=== PATIENT | male | born 1945 | race Hispanic/Latino ===

== ENCOUNTER 2021-02-25 10:46 | Emergency (ER) | payer OTHER ==
--- OUTSIDE RECORDS SUMMARY | 2021-02-25 10:48 | XMS REPORT | Continuity of Care Document ---
:1945 Demographics Address [address] [place] [address] Email Address PT DECLINE Preferred Language Tuvaluan Marital Status Unknown Nondenominational Affiliation Unknown Race Unknown Additional Race(s) Unavailable Ethnic Group Unknown Author Organization [facility] t Address [address] Gill [address] [place] [id number] Care Team Providers Name Role Phone Ajibade_O_AH Attending Clinician Unavailable STELLA Attending Clinician Unavailable Ige-Odunuga_J_AH Attending Clinician Unavailable Ajibade_O_AH Admitting Clinician Unavailable Ige-Odunuga_J_AH Admitting Clinician Unavailable Payers Payer Name Policy Type Policy Number Effective Date Expiration Date S ource [facility] [place] - [id number] [facility] 00:00:00 (MEDICARE REPLACEMENT/ADVANT AGE - HMO) Problems This patient has no known problems. Allergies, Adverse Reactions, Alerts This patient has no known allergies or adverse reactions. Medications This patient has no known medications. Procedures This patient has no known procedures. Encounters Start End Encounter Admission Attending Care Care Encounter Source Date/Time Date/Time Type Type Clinicians Facility Department ID 2019-11-13 2019-11-13 Outpatient Ajibade_O_A VFP VFP [phone] [facility] 04:35:00 04:35:00 H [id number] Family Practic e 2019-11-13 2019-11-13 Outpatient Ajibade_O_A VFP VFP [phone] [facility] 04:35:00 04:35:00 H [id number] Family Practic e 2019-08-05 2019-08-06 Outpatient STELLA [facility] [id number] [address] 00:00:00 00:00:00 MARISSA [address] 2019-07-08 2019-07-08 Outpatient STELLA [facility] [id number] [address] 00:00:00 00:00:00 MARISSA [address] 2019-05-07 2019-05-07 Outpatient Ige-Odunuga VFP VFP [phone] [facility] 07:18:00 07:18:00 _J_AH [id number] Family Practic e 2019-05-07 2019-05-07 Outpatient [facility] VFP [phone] [facility] 07:18:00 07:18:00 _J_AH [id number] Family Practic e Results This patient has no known results.
--- NOTE | 2021-02-25 15:32 | RAD REPORT ---
EXAM DESCRIPTION: CT - CTHCSPWOC - 02/25/2021 3:24 pm CLINICAL HISTORY: Trauma, head and neck injury. Syncope;Pain COMPARISON: No comparisons TECHNIQUE: Axial 5 mm thick images of the head were obtained. Axial 2 mm thick images of the cervical spine were obtained with sagittal and coronal reconstruction images generated and reviewed. All CT scans are performed using dose optimization technique as appropriate and may include automated exposure control or mA/KV adjustment according to patient size. FINDINGS: CT HEAD WITHOUT CONTRAST: No acute hemorrhage, hydrocephalus or extra-axial collection is identified.No areas of brain edema or midline shift. Chronic small vessel ischemic changes. The paranasal sinuses and mastoids are clear.The calvarium is intact. CT CERVICAL SPINE WITHOUT CONTRAST: No fracture or subluxation.No prevertebral soft tissues swelling is identified. Bilateral carotid art kvng stents. Near bridging osteophytes are present cervical spine. Apical scarring in the lungs. IMPRESSION: No acute intracranial or cervical spine findings. MRI is more sensitive for acute infarct.
--- NOTE | 2021-02-25 17:21 | RAD REPORT ---
EXAM DESCRIPTION: - CP - 02/25/2021 4:55 pm CLINICAL HISTORY: SYNCOPE COMPARISON: Head C Spine Mpr Wo Con dated 02/25/2021; Carotid Artery Bilateral dated 04/19/2018 TECHNIQUE: Real-time sonographic evaluation of both carotid systems was performed. Doppler interroga tion was performed with waveform tracing bilaterally. FINDINGS: Normal high resistance waveforms are noted in both external carotid arteries. The common c arotid arteries and internal carotid arteries show normal low resistance waveforms. Patent bilateral carotid artery stents which extend from the mid common carotid artery into the proximal ICAs. Peak systolic and end diastolic velocity values and the ICA/CCA ratios are in the non-hemodynamically significant range. Retrograde flow is present in the right vertebral artery. Normal antegrade flow is present in the lef t vertebral artery. IMPRESSION: Patent bilateral carotid artery stents. No flow limiting stenosis identified. Reversal flow in the right vertebral artery. This could indicate a flow limiting process in the right subclavian artery. The left vertebral artery demonstrates normal antegrade flow.
--- NOTE | 2021-02-25 19:38 | RAD REPORT ---
EXAM DESCRIPTION: MRI - Brain Wo Cont - 02/25/2021 7:09 pm CLINICAL HISTORY: Dizziness;Syncope COMPARISON: Head C Spine Mpr Wo Con dated 02/25/2021 TECHNIQUE: Sagittal T1-weighted images were obtained along with PD/heavily T2-weighted and T2-FLAIR images. Axial DWI and ADC mapping sequences were also obtained along with coronal heavily T2-weighted images were obtained. FINDINGS: No intracranial hemorrhage, mass or acute infarction. There is no edema or shift of midlin e structures. No extra-axial fluid collections. Signal voids are seen as a normal finding in the meet r intracranial vessels. Mild to moderate chronic small vessel ischemic changes. Slightly age advanced cerebral atrophy. Remote small bilateral cerebellar infarcts. Remote basal ganglia lacunar infarcts. Remote small granados radiata infarcts. Mastoid air cells and paranasal sinuses are clear. IMPRESSION: No acute intracranial abnormality. Specifically, no evidence of acute infarct. Sequela o f small remote infarcts as noted above. Mild to moderate chronic small vessel ischemic changes.
--- NOTE | 2021-02-25 19:59 | EDPHYS ---
Physician Documentation [facility] Name: Chapo Haskins Age: 75 yrs Sex: Male : 1945 Arrival Date: 02/25/2021 Time: 10:56 Bed 11 Private MD: ED Physician Denver Salmon HPI: 02/25 17:16 This 75 yrs old Male presents to ER via Ambulatory with complaints of Fall kdr Injury. 17:16 Details of fall: The patient fell from an upright position, while standing. Onset: The kdr symptoms/episode began/occurred suddenly, just prior to arrival. Associated injuries: The patient sustained injury to the head. Severity of symptoms: At their worst the symptoms were mild, in the emergency department the symptoms are unchanged. The patient has not experienced similar symptoms in the past, but family has similar symptoms. The patient has not recently seen a physician. Patient was looking at her son who is standing in a hugo brain picker lift platform above him. He noted several times to have some discomfort in his neck as he looked up. He then looked down abruptly and had a syncopal episode. He now complains of contusions on his thorax and arms. He also may have had a minor head contusion. Historical: - Allergies: 11:38 No Known Allergies; ss - PMHx: 11:38 Hypertensive disorder; Hypercholesterolemia; ss - PSHx: 11:38 carotid stents; ss - Immunization history:: Client reports having NOT received the Covid vaccine. - Social history:: Smoking status: Patient reports the use of cigarette tobacco products, denies chronic smoking, but will smoke occasionally. ROS: 17:19 Constitutional: Negative for fever, chills, and weight loss, Eyes: Negative for injury, kdr pain, redness, and discharge, Neck: Negative for injury, pain, and swelling, Cardiovascular: Negative for chest pain, palpitations, and edema, Respiratory: Negative for shortness of breath, cough, wheezing, and pleuritic chest pain, Abdomen/GI: Negative for abdominal pain, nausea, vomiting, diarrhea, and constipation, Back: Negative for injury and pain, : Negative for injury, bleeding, discharge, and swelling, MS/Extremity: Negative for injury and deformity, Skin: Negative for injury, rash, and discoloration, Neuro: Negative for headache, weakness, numbness, tingling, and seizure activity. Psych: Negative for depression, anxiety, suicide ideation, homicidal ideation, and hallucinations, Allergy/Immunology: Negative for hives, rash, and allergies, Endocrine: Negative for neck swelling, polydipsia, polyuria, polyphagia, and marked weight changes, Hematologic/Lymphatic: Negative for swollen nodes, abnormal bleeding, and unusual bruising. Exam: 17:19 Constitutional: This is a well developed, well nourished patient who is awake, alert, kdr and in no acute distress. Head/Face: Normocephalic, atraumatic. Eyes: Pupils equal round and reactive to light, extra-ocular motions intact. Lids and lashes normal. Conjunctiva and sclera are non-icteric and not injected. Cornea within normal limits. Periorbital areas with no swelling, redness, or edema. Neck: Trachea midline, no thyromegaly or masses palpated, and no cervical lymphadenopathy. Supple, full range of motion without nuchal rigidity, or vertebral point tenderness. No Meningismus. Chest/axilla: Normal chest wall appearance and motion. Nontender with no deformity. No lesions are appreciated. Cardiovascular: Regular rate and rhythm with a normal S1 and S2. No gallops, murmurs, or rubs. Normal PMI, no JVD. No pulse deficits. Respiratory: Lungs have equal breath sounds bilaterally, clear to auscultation and percussion. No rales, rhonchi or wheezes noted. No increased work of breathing, no retractions or nasal flaring. Abdomen/GI: Soft, with normal bowel sounds. No distension or tympany. No guarding or rebound. No evidence of tenderness throughout. Patient has minor contusion Back: No spinal tenderness. No costovertebral tenderness. Full range of motion. Skin: Warm, dry with normal turgor. Normal color with no rashes, no lesions, and no evidence of cellulitis. MS/ Extremity: Pulses equal, no cyanosis. Neurovascular intact. Full, normal range of motion. Neuro: Awake and alert, GCS 15, oriented to person, place, time, and situation. Cranial nerves II-XII grossly intact. Motor strength 5/5 in all extremities. Sensory grossly intact. Cerebellar exam normal. Normal gait. Psych: Awake, alert, with orientation to person, place and time. Behavior, mood, and affect are within normal limits. Vital Signs: 11:35 BP 134 / 65; Pulse 76; Resp 15; Temp 97.3(TE); Pulse Ox 97% on R/A; Weight 81.65 kg; ss Height 5 ft. 10 in. (177.80 cm); Pain 0/10; 20:25 BP 131 / 70; Pulse 72; Resp 18; Pulse Ox 98% on R/A; ld1 11:35 Body Mass Index 25.83 (81.65 kg, 177.80 cm) ss MDM: 17:19 Data reviewed: vital signs, nurses notes, lab test result(s), radiologic studies. kdr Counseling: I had a detailed discussion with the patient and/or guardian regarding: the historical points, exam findings, and any diagnostic results supporting the discharge/admit diagnosis, lab results, radiology results. 19:42 Transition of care: After a detail discussion of the patient's case, care is kdr transferred to Jose Guallpa MD. 19:59 Patient medically screened. kdr 20:00 ED course: The patient was stable in the ED and without further concerns. Since the kdr patient had a syncopal episode related to head position and movement the workup centered around head and neck issues. The patient has had syncopal episodes in the past that may have also been related to head movement and position. He has had carotid stents secondary to his evaluation and management of these episodes. He has not had any s/s suggestive of a cardiac etiology. 02/25 14:38 Order name: CT Head C Spine; Complete Time: 15:42 kdr 02/25 15:43 Order name: Carotid Artery Bilateral US; Complete Time: 19:45 kdr 02/25 18:59 Order name: Brain Wo Cont; Complete Time: 19:45 EDMS Administered Medications: No medications were administered Disposition Summary: 02/25/21 19:59 Discharge Ordered Location: Home kdr Problem: new kdr Symptoms: are resolved kdr Condition: Stable kdr Diagnosis - Syncope Near kdr Followup: kdr - With: Private Physician - When: 2 - 3 days - Reason: If symptoms return, Further diagnostic work-up, Recheck today's complaints, Continuance of care, Re-evaluation by your physician Discharge Instructions: - Discharge Summary Sheet kdr - Syncope kdr - Contusion, [id number] kdr Forms: - Medication Reconciliation Form kdr - Thank You Letter kdr Prescriptions: - Ibuprofen 600 mg Oral Tablet - take 1 tablet by ORAL route every 6 hours As needed take with food; 15 tablet; kdr Refills: 0, Product Selection Permitted Signatures: Dispatcher [employer] Denver Lindsay MD MD kdr Smirch, Shelby, RN RN ss Corrections: (The following items were deleted from the chart) 11:39 11:38 Social history: Smoking status: Patient denies any tobacco usage or history of. ssss 18:59 15:43 Brain W/Wo Cont+MRI.RAD.BRZ ordered. ED ED
--- NOTE | 2021-02-25 19:59 | ER ---
Nurse's Notes [facility] Name: Chapo Haskins Age: 75 yrs Sex: Male : 1945 Arrival Date: 02/25/2021 Time: 10:56 Bed 11 Private MD: Diagnosis: Syncope Near Presentation: 02/25 11:35 Chief complaint: Patient states: Pt reports he looked up yesterday and felt a warm ss sensation up his neck and he passed out. Family member reports that patient was "out for a few seconds.". Coronavirus screen: Client denies travel out of the [place] in the last 14 days. Ebola Screen: Patient denies exposure to infectious person. Patient denies travel to an Ebola-affected area in the 21 days before illness onset. Initial Sepsis Screen: Does the patient meet any 2 criteria? No. Patient's initial sepsis screen is negative. Does the patient have a suspected source of infection? No. Patient's initial sepsis screen is negative. Risk Assessment: Do you want to hurt yourself or someone else? Patient reports no desire to harm self or others. Onset of symptoms was February 24, 2021. 11:35 Method Of Arrival: Ambulatory ss 11:35 Acuity: BARBARA 3 ss Historical: - Allergies: 11:38 No Known Allergies; ss - PMHx: 11:38 Hypertensive disorder; Hypercholesterolemia; ss - PSHx: 11:38 carotid stents; ss - Immunization history:: Client reports having NOT received the Covid vaccine. - Social history:: Smoking status: Patient reports the use of cigarette tobacco products, denies chronic smoking, but will smoke occasionally. Screenin:03 Abuse screen: Denies threats or abuse. Denies injuries from another. Nutritional iw screening: No deficits noted. Tuberculosis screening: No symptoms or risk factors identified. Fall Risk None identified. Assessment: 14:15 General: Appears in no apparent distress. Behavior is calm, cooperative. Pain:. Neuro: iw Level of Consciousness is awake, alert, obeys commands, Oriented to person, place, time, situation, Moves all extremities. Full function Respiratory: Respiratory effort is even, unlabored. Derm: Skin is intact, is healthy with good turgor. Musculoskeletal: Range of motion: intact in all extremities. 15:03 Reassessment: Patient appears in no apparent distress at this time. Patient and/or iw family updated on plan of care and expected duration. Pain level reassessed. Patient is alert, oriented x 3, equal unlabored respirations, skin warm/dry/pink. 17:22 Reassessment: Patient appears in no apparent distress at this time. Patient and/or iw family updated on plan of care and expected duration. Pain level reassessed. Patient is alert, oriented x 3, equal unlabored respirations, skin warm/dry/pink. 17:54 Reassessment: Patient appears in no apparent distress at this time. Patient and/or ss family updated on plan of care and expected duration. Pain level reassessed. Patient is alert, oriented x 3, equal unlabored respirations, skin warm/dry/pink. family at bedside. Awaiting MRI to be obtained. 19:15 Reassessment: Pt back from MRI. Awaiting results. ss 20:15 Reassessment: Patient appears in no apparent distress at this time. Family in pt room - ld1 ready to leave. 20:25 Reassessment: Patient appears in no apparent distress at this time. No changes from ld1 previously documented assessment. Patient and/or family updated on plan of care and expected duration. Pain level reassessed. Patient is alert, oriented x 3, equal unlabored respirations, skin warm/dry/pink. Patient denies concerns at this time. Vital Signs: 11:35 BP 134 / 65; Pulse 76; Resp 15; Temp 97.3(TE); Pulse Ox 97% on R/A; Weight 81.65 kg; ss Height 5 ft. 10 in. (177.80 cm); Pain 0/10; 20:25 BP 131 / 70; Pulse 72; Resp 18; Pulse Ox 98% on R/A; ld1 11:35 Body Mass Index 25.83 (81.65 kg, 177.80 cm) ED Course: 10:56 Patient arrived in ED. kc5 11:38 Triage completed. ss 11:38 Arm band placed on left wrist. ss 13:24 Luz Elena Tang, RN is Primary Nurse. iw 13:37 Denver Salmon MD is Attending Physician. kdr 15:03 No provider procedures requiring assistance completed. iw 15:24 CT Head C Spine In Process Unspecified. EDMS 16:54 Carotid Artery Bilateral US In Process Unspecified. EDMS 17:54 Patient has correct armband on for positive identification. Bed in low position. Call light in reach. 19:00 Brain Wo Cont In Process Unspecified. EDMS 20:25 Patient did not have IV access during this emergency room visit. ld1 Administered Medications: No medications were administered Outcome: 19:59 Discharge ordered by . kdr 20:26 Discharged to home ambulatory, with family. ld1 20:26 Condition: stable 20:26 Discharge instructions given to patient, family, Instructed on discharge instructions, follow up and referral plans. medication usage, Demonstrated understanding of instructions, follow-up care, medications, Prescriptions given X 1. 20:26 Patient left the ED. ld1 Signatures: Dispatcher [employer] EDMS Denver Salmon MD MD kdr Luz Elena Tang RN RN iw Corry Andrea RN RN ss Radha Franklin RN RN ld1 Adriana Fritz kc5 Corrections: (The following items were deleted from the chart) 11:39 11:38 Social history: Smoking status: Patient denies any tobacco usage or history of. ssss
[2021-02-25 20:39] VITALS: TEMP 97.3
[2021-02-25 20:41] VITALS: BP 131/70; O2SAT 98
== END 2021-02-25 20:26 | disposition home or self-care (01) ==
LOC: ER 10:46
DX: S00.83XA Contusion of other part of head, initial encounter (principal); W18.30XA Fall on same level, unspecified, initial encounter; I10 Essential (primary) hypertension; F17.210 Nicotine dependence, cigarettes, uncomplicated; Z95.818 Presence of other cardiac implants and grafts
CPT/HCPCS: 70450; 70551; 72125; 93880; 99283